=== PATIENT | male | born 1980 | race Caucasian/White ===

== ENCOUNTER 2023-12-23 16:55 | Emergency (ER) | payer OTHER, SELFPAY ==
[2023-12-23 17:01] VITALS: BP 144/100; PULSE 67; TEMP 37; O2SAT 97; BMI 38.7
--- NOTE | 2023-12-23 17:24 | ED.GENADUL1 ---
HPI HPI - General Adult General Chief complaint: Extremity Injury, Upper Stated complaint: upper extremity injury Time Seen by Provider: 12/23/23 16:59 Source: patient Mode of arrival: walk-in Limitations: no limitations History of Present Illness HPI narrative: 43-year-old male presents here with chief complaint of a superficial laceration to the left thumb. Is a superficial 1 cm wound noted to the volar surface. He was using a knife and accidentally cut his finger. He is not up-to-date on tetanus imitation. Injury occurred just prior to arrival. Small amount of bleeding is noted. On initial exam, it does appear very superficial. Full range of motion extremities neurovascularly intact. He is right-hand dominant. Related Data Allergies Allergy/AdvReac Type Severity Reaction Status Date / Time No Known Drug Allergies Allergy Verified 12/23/23 17:22 Opioid HPI Opioid Management Most Recent Opioid Data: No Data to Display Review of Systems ROS Narrative All Systems are negative except as noted/marked.All systems reviewed and otherwise negative Exam Narrative Exam Narrative: Nurses note and vital signs reviewed and patient is not hypoxic. General: The patient appears well and in no apparent distress. Patient is resting comfortably on cart. Skin: Warm, dry, no pallor noted. Superficial laceration to left thumb Head: Normocephalic, atraumatic Eye: Normal conjunctiva, no drainage, EOMI. PERRL Ears, Nose, Mouth, and Throat: oral mucosa is moist. Nares patent. Mouth without vesicles. Ear canals patent. Tm's without Erythema Musculoskeletal:1 cm laceration to the left thumb volar surface. small amount of bleeding, no tendon involvement, remainder of extremities are within normal limits Neurological: A&O x4, normal speech Psychiatric: Cooperative Constitutional Vital Signs, click to edit/add: Last Vital Signs Temp 98.6 F 12/23/23 17:01 Pulse 67 12/23/23 17:01 Resp 18 12/23/23 17:01 BP 144/100 H 12/23/23 17:01 Pulse Ox 97 12/23/23 17:01 O2 Del Method Room Air 12/23/23 17:01 Course Vital Signs Vital signs: Vital Signs Temperature 98.6 F 12/23/23 17:01 Pulse Rate 67 12/23/23 17:01 Respiratory Rate 18 12/23/23 17:01 Blood Pressure 144/100 H 12/23/23 17:01 Pulse Oximetry 97 12/23/23 17:01 Oxygen Delivery Method Room Air 12/23/23 17:01 Temperature 98.6 F 12/23/23 17:01 Pulse Rate 67 12/23/23 17:01 Respiratory Rate 18 12/23/23 17:01 Blood Pressure 144/100 H 12/23/23 17:01 Pulse Oximetry 97 12/23/23 17:01 Oxygen Delivery Method Room Air 12/23/23 17:01 Medical Decision Making [facility] Narrative Medical decision making narrative: 43-year-old male presents here with chief complaint of a laceration to the left thumb. Superficial. We did attempt to use the let solution to help Vasoconstrict the wound and stop the bleeding. Patient's wound continued to ooze. wound was then cleaned and prepped sterile fashion for sutures. Wound was irrigated with Hibiclens normal saline. 2 simple sutures with 4-0 Ethilon were used to reapproximate the wound , bleeding did stop. Patient be discharged home with suture instructions. He was updated on tetanus immunization here. He denied the need for pain medication Tylenol or Motrin at this time. Differential Diagnosis Differential Diagnosis: laceration Medical Records Medical records reviewed: Yes I reviewed the patient's medical records Discharge Plan Discharge Stand Alone Forms: Portal Instructions Chief Complaint: Extremity Injury, Upper Clinical Impression: Finger laceration Patient Disposition: Home, Self-Care Time of Disposition Decision: 17:44 Condition: Good Print Language: Jamaican Instructions: Finger Laceration (ED) Referrals: Physician,Non-Staff, [Physician] - 1 week
[2023-12-23] MEDS: SODIUM CHLORIDE 0.9% IRRIG SOLUTION 1,000 ML BOTTLE 1000 ML IRR (17:31)
[2023-12-23] MEDS: ADACEL DIPH,PERTUSS(ACELL),TET VAC/PF 0.5 ML ADULT SYRINGE IM (17:32)
[2023-12-23] MEDS: LIDOCAINE/EPINEPHRINE/TETRACAINE 3 ML GEL.PF.APP TOPICAL (17:33)
[2023-12-23] MEDS: LIDOCAINE HCL 1%-EPINEPHRINE 1:100,000 20 ML MDV INJ (17:50)
== END 2023-12-23 18:01 | disposition home or self-care (01) ==
PROVIDERS: Emergency Provider Emergency Medicine Emergency Medical Services; PCP Nurse Practitioner
DX: S61.012A Laceration without foreign body of left thumb without damage to nail, initial encounter (principal); Z23 Encounter for immunization; W26.0XXA Contact with knife, initial encounter
CPT/HCPCS: 12001; 90471; 90715; 99283

== ENCOUNTER 2024-07-26 15:27 | Outpatient (OUT) | payer OTHER, SELFPAY ==
--- NOTE | 2024-07-26 15:31 | CT_ITS ---
[address] [address] Patient Name: RADHA RAMOS MRN: [id number] date: 1980 Sex: M Assigned Patient Location: CT Current Patient Location: CT Accession/Order Number: [id number] Exam Date: 07/26/2024 15:52 Report Date: 07/30/2024 07:59 At the request of: PRETTY VELAZQUEZ Procedure: CT abdomen pelvis wo/w con EXAMINATION: CT abdomen pelvis wo/w con HISTORY: Gross Hematuria R31.0 COMPARISON: 06/13/2018 TECHNIQUE: Axial, Coronal, and Sagittal images were created without and with non-ionic intravenous contrast material. Dose reduction techniques were achieved by using automated exposure control and/or adjustment of mA and/or kV according to patient size and/or use of iterative reconstruction technique. FINDINGS: LUNG BASES: No visible pulmonary or pleural disease. LIVER: No enlargement, atrophy, abnormal density, or significant focal lesion. BILIARY: Surgical clips from cholecystectomy PANCREAS: No lesion, fluid collection, ductal dilatation, or atrophy. SPLEEN: No enlargement or focal lesion. ADRENALS: No mass or enlargement. KIDNEYS: No mass, obstruction, or calcification. BOWEL/MESENTERY: No visible mass, obstruction, or bowel wall thickening. Suture line from prior appendectomy. AORTA/VASCULAR: No aortic aneurysm RETROPERITONEUM: No mass or adenopathy. LYMPH NODES: No adenopathy. URINARY BLADDER: No visible focal wall thickening, lesion, or calculus. PELVIC ORGANS: No visible mass. Pelvic organs appropriate for patient age. ABDOMINAL WALL: No mass or hernia. BONES: No bony lesion or fracture. Striated lucency in the T10 vertebral body consistent with a hemangioma OTHER: Negative. CT/CT abdomen pelvis wo/w con IMPRESSION: No CT explanation for the patient's hematuria Electronically authenticated by: MAVERICK RICHARDSON Date: 07/30/2024 07:59
== END 2024-07-26 15:28 | disposition home or self-care (01) ==
LOC: CT 15:28
PROVIDERS: PCP Nurse Practitioner; Visit Provider Physician Assistant
DX: R31.0 Gross hematuria (principal)
CPT/HCPCS: 74178; Q9967

== ENCOUNTER 2024-09-04 16:42 | Outpatient (OUT) | payer OTHER, SELFPAY ==
--- NOTE | 2024-09-04 17:13 | US_ITS ---
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 TECHNIQUE: High-resolution sonographic imaging of the scrotum and contents was performed. FINDINGS: RIGHT: TESTICLE: Homogeneous echotexture. No visible mass. Color Doppler flow is present. Spectral Doppler demonstrates normal arterial waveform and flow, 3/1 cm/s (PSV/EDV), and normal venous wave flow averaging 1 cm/s. EPIDIDYMIS: Normal size and echogenicity. OTHER: Abnormal skin thickening; 1.0 cm. LEFT: TESTICLE: Homogeneous echotexture. No visible mass. Color Doppler flow is present. Spectral Doppler demonstrates arterial waveform and flow, 3/1 cm/s (PSV/EDV), and normal venous flow averaging 1 cm/s. EPIDIDYMIS: Normal size and echogenicity. OTHER: Small hydrocele. Minimal varicocele. Dilated tubular structure with internal debris; likely prominent spermatic cord. Borderline skin thickening, 0.5 cm US/US scrotum IMPRESSION: 1. Slightly vascular abnormal skin thickening on right suggestive of inflammatory process. 2. Normal appearance of the testicles and epididymides bilaterally. 3. Tiny left hydrocele. 4. Prominent slightly distended left spermatic cord; nonspecific. Electronically authenticated by: FREYA JACK Date: 09/05/2024 04:54
== END 2024-09-04 16:43 | disposition home or self-care (01) ==
PROVIDERS: PCP Nurse Practitioner; Visit Provider Urology
DX: N45.3 Epididymo-orchitis (principal); N43.3 Hydrocele, unspecified
CPT/HCPCS: 76870